=== PATIENT | female | born 1955 | race Caucasian/White ===

== ENCOUNTER → 2017-04-24 | Outpatient (CLI) | payer BC ==
--- NOTE | 2017-04-24 19:02 | DI ---
VENOUS DOPPLER ULTRASOUND OF THE LEFT LOWER EXTREMITY, 04/24/2017 3:38 PM: Clinical History: Left leg pain. Bruising. Strain. Previous Exam: None. Technique: 2D real-time imaging is supplemented with color Doppler ultrasound. Compression and augmen tation maneuvers were performed. The deep venous system from the groin to the popliteal fossa is norm al. The greater saphenous vein is normal. Scans are performed through the posterior thigh region wher e there apparently is bruising. Scans through these areas show an irregular pattern of patchy areas o f increased echogenicity in the subcutaneous fat as well as increased echogenicity in the skin. These areas of increased echogenicity either represent edema or possibly even hemorrhage. Readin. Negative venous Doppler ultrasound of the left lower extremity. 2. Extensive amount of either edema or blood in the subcutaneous fat in the posterior thigh region w ith edema of the skin.
== END ==
LOC: US 15:27
PROVIDERS: ATTEND Physician Assistant Surgical
DX: M79.605 Pain in left leg (principal); S80.12XA Contusion of left lower leg, initial encounter
CPT/HCPCS: 93971

== ENCOUNTER → 2017-05-05 | Outpatient (CLI) | payer BC ==
--- NOTE | 2017-05-05 11:04 | DI ---
MRI LEFT HIP SCAN, 05/05/2017 8:32 AM: Clinical History: Left hamstring strain. Chronic pain. Previous Exam: None at this facility. Technique: Axial fat saturated T2 weighted and oblique axial PD; coronal and sagittal PD and fat satu rated PD; anterior and posterior oblique coronal fat saturated PD. Sagittal and coronal scans were ex tended inferiorly to the mid thigh region. The patient is morbidly obese. This detracts from the overall quality and significantly limits the di agnostic quality of the exam with respect to fine detail structures. There is edema in the subcutaneo us fat posteriorly over the proximal thigh region. No abnormal bone signal pattern is present. There is fluid in the semitendinosus muscle fascia and the common hamstring tendon is either avulsed from t he ischial tuberosity or has ruptured proximal to the attachment to the ischial tuberosity. There is increased signal intensity in the proximal portion of the semimembranosus tendon at the distal portio n and the muscle belly are intact. The proximal portion of the semitendinosus muscle is retracted and this muscle probably is partially torn. Fluid surrounds the semimembranosus fascia. The common hamst ring tendon is retracted approximately 4-5 cm from the issue tuberosity. Readin. There is either avulsion of the common hamstring tendon from its attachment to the tibial tuberos ity, or there has been complete rupture of this common tendon in proximity to the attachment to the t ibial tuberosity. A tear is present in the semitendinosus muscle in the proximal muscle fibers have r etracted distally. The fascia of the semitendinosus muscle is intact and contains fluid. 2. The proximal portion of the semimembranosus tendon just distal to the tear shows increased signal intensity. Distal to the tear, the tendon and muscle are intact.
== END ==
LOC: MRI 08:28
PROVIDERS: ATTEND Orthopaedic Surgery
DX: S86.812A Strain of other muscle(s) and tendon(s) at lower leg level, left leg, initial encounter (principal)
CPT/HCPCS: 73721